=== PATIENT | female | born 1975 | race Caucasian/White ===

== ENCOUNTER 2017-12-27 19:25 | Emergency (ER) | payer SELFPAY ==
[2017-12-27] MEDS: fentaNYL PF VIAL 100 MCG/2 ML VIAL IV (20:27)
[2017-12-27] MEDS: IV NORMAL SALINE 1000ML BAG 1,000 ML IV (20:28)
[2017-12-27] MEDS: ETOMIDATE 20 MG/10 ML VIAL. IV (20:28)
[2017-12-27] MEDS: ONDANSETRON PF 4 MG/2 ML VIAL. IV (20:47)
[2017-12-27] MEDS: KETAMINE HCL 500 MG/10 ML VIAL. IV (21:28)
== END 2017-12-27 22:10 | disposition home or self-care (01) ==
LOC: ER 19:25
DX: S43.005A Unspecified dislocation of left shoulder joint, initial encounter (principal); J44.9 Chronic obstructive pulmonary disease, unspecified; Z88.6 Allergy status to analgesic agent; X50.9XXA Other and unspecified overexertion or strenuous movements or postures, initial encounter; Y93.89 Activity, other specified; Y99.8 Other external cause status; Y92.89 Other specified places as the place of occurrence of the external cause
CPT/HCPCS: 23650; 73030; 96374; 99285-25; J2405; J3010; J3490; J7030

== ENCOUNTER 2018-03-30 13:22 | Emergency (ER) | payer SELFPAY ==
[~2018-03-30] VITALS: Ht 160 cm; Wt 74.8 kg
[~2018-03-30 13:22] MED LIST: ORPH100T PO
[2018-03-30] MEDS ORDERED: IV NORMAL SALINE 1000ML BAG 1,000 ML IV ONE (13:45)
[2018-03-30] MEDS ORDERED: AMPICILLIN/SULBACTAM 3 GM in IV NORMAL SALINE 100ML 100 ML IV ONE (14:00)
[2018-03-30] MEDS ORDERED: fentaNYL PF VIAL 100 MCG/2 ML VIAL IV ONE ×2 (14:00→16:15)
[2018-03-30] MEDS ORDERED: ONDANSETRON PF 4 MG/2 ML VIAL. IV ONE (14:00)
--- NOTE | 2018-03-30 14:21 | RAD ---
Examination: 2 views of the left shoulder HISTORY: History of left shoulder injury COMPARISON: None available FINDINGS: The humerus head is subluxed or dislocated anteriorly and inferior to the glenoid. Mild degenerative changes AC joint. IMPRESSION: Anterior-inferior subluxation or dislocation of the humerus with relation to glenoid. Electronically signed by: Cristian Maldonado MD (03/30/2018 2:18 PM) [facility]
--- NOTE | 2018-03-30 14:25 | RAD ---
Examination: 3 views of the left knee HISTORY: History of dog bite to the left knee, laceration COMPARISON: None available FINDINGS: The alignment of the knee joint grossly appears unremarkable. No acute fracture identified. No significant knee joint effusion. Mild soft tissue swelling identified lateral to the distal femur likely secondary to injury. IMPRESSION: No acute osseous findings Electronically signed by: Cristian Maldonado MD (03/30/2018 2:22 PM) [facility]
--- NOTE | 2018-03-30 14:29 | PHYS DOC ---
Past Medical History Past Medical History: Asthma, Bipolar, Bronchitis, COPD Past Surgical History: Appendectomy, Cholecystectomy, Tonsillectomy, Tubal ligation Additional Past Surgical Histo: LT SHOULDER, LT WRIST, Alcohol Use: None Drug Use: None Adult General Chief Complaint Chief Complaint: UPPER EXTREMITY INJURY [facility] HPI Patient is a 42 year old was brought here by EMS for evaluation of left shoulder injury, left knee injury. Patient was trying to separate her dogs from fighting, the dog turned around bit her on the left knee area. Patient said the dog pulled on her, injuring her left shoulder. She has history of recurrent left shoulder dislocation. She is up-to-date on vaccination. Patient said her dogs are up to date on the vaccination as well. She denies any weakness or numbness in her left upper extremity. Review of Systems Review of Systems Constitutional: Denies fever or chills [] Eyes: Denies change in visual acuity, redness, or eye pain [] HENT: Denies nasal congestion or sore throat [] Respiratory: Denies cough or shortness of breath [] Cardiovascular: No additional information not addressed in HPI [] GI: Denies abdominal pain, nausea, vomiting, bloody stools or diarrhea [] : Denies dysuria or hematuria [] Musculoskeletal: Positive for left shoulder pain, left knee pain Integument: Positive for left lateral knee laceration Neurologic: Denies headache, focal weakness or sensory changes [] Endocrine: Denies polyuria or polydipsia [] All other systems were reviewed and found to be within normal limits, except as documented in this note. Current Medications Current Medications Current Medications Medications (Trade) Dose Ordered Sig/Evans Start Time Stop Time Status Last Admin Dose Admin Ampicillin Sodium/ Sulbactam Sodium 3 gm/Sodium Chloride 100 ml @ 200 mls/hr 1X ONCE 03/30/18 14:00 03/30/18 14:29 DC 03/30/18 14:18 200 MLS/HR Fentanyl Citrate (Fentanyl 2ml Vial) 75 mcg 1X ONCE 03/30/18 16:15 03/30/18 16:16 DC 03/30/18 15:50 75 MCG Lidocaine HCl (Lidocaine 1% 20ml Vial) 20 ml STK-MED ONCE 03/30/18 14:41 03/30/18 14:42 Cancel Midazolam HCl (Versed) 5 mg 1X ONCE 03/30/18 16:15 03/30/18 16:16 DC 03/30/18 15:50 5 MG Ondansetron HCl (Zofran) 4 mg 1X ONCE 03/30/18 14:00 03/30/18 14:01 DC 03/30/18 14:18 4 MG Propofol (Diprivan) 50 mg 1X ONCE 03/30/18 14:45 03/30/18 14:46 DC 03/30/18 14:46 50 MG Sodium Chloride 1,000 ml @ 1,000 mls/hr 1X ONCE 03/30/18 13:45 03/30/18 14:44 DC 03/30/18 14:15 1,000 MLS/HR Allergies Allergies Allergies Coded Allergies Type Severity Reaction Last Updated Verified NSAIDS (Non-Steroidal Anti-Inflamma Allergy Intermediate 12/27/17 Yes Physical Exam Physical Exam Constitutional: Well developed, well nourished, no acute distress, non-toxic appearance. [] HENT: Normocephalic, atraumatic, bilateral external ears normal, oropharynx moist, no oral exudates, nose normal. [] Eyes: PERRLA, EOMI, conjunctiva normal, no discharge. [] Neck: Normal range of motion, no tenderness, supple, no stridor. [] Cardiovascular:Heart rate regular rhythm, no murmur [] Lungs & Thorax: Bilateral breath sounds clear to auscultation [] Abdomen: Bowel sounds normal, soft, no tenderness, no masses, no pulsatile masses. [] Skin: Warm, dry, no erythema, 2 CM LACERATION ON THE LATERAL PART OF LEFT KNEE , NO TENDON INVOLVED. Back: No tenderness, no CVA tenderness. [] Extremities: Left shoulder appeared to be subluxed, tender to palpation. Neurologic: Alert and oriented X 3, normal motor function, normal sensory function, no focal deficits noted. [] Psychologic: Affect normal, judgement normal, mood normal. [] Current Patient Data Vital Signs Vital Signs Date Time Temp Pulse Resp B/P (MAP) Pulse Ox O2 Delivery O2 Flow Rate FiO2 03/30/18 16:07 94/54 (67) 97 Room Air 03/30/18 15:57 4.0 03/30/18 15:03 78 03/30/18 14:47 20 16 03/30/18 13:42 98.1 98.1 EKG EKG [] Radiology/Procedures Radiology/Procedures [][id number] [place] [address] IMAGING REPORT Signed PATIENT: TORREY BRYANT ACCOUNT: [id number] : 1975 LOCATION: ER AGE: 42 SEX: F EXAM STATUS: REG ER ORD. PHYSICIAN: MARA ZENG DO REASON: LEFT SHOULDER INJURY PROCEDURE: SHOULDER 2+V LEFT Examination: 2 views of the left shoulder HISTORY: History of left shoulder injury COMPARISON: None available FINDINGS: The humerus head is subluxed or dislocated anteriorly and inferior to the glenoid. Mild degenerative changes AC joint. IMPRESSION: Anterior-inferior subluxation or dislocation of the humerus with relation to glenoid. Electronically signed by: Cristian Maldonado MD (03/30/2018 2:18 PM) [facility] DICTATED and SIGNED BY: CRISTIAN MALDONADO MD DATE: 03/30/18 [id number] [place] [address] IMAGING REPORT Signed PATIENT: TORREY BRYANT ACCOUNT: [id number] : 1975 LOCATION: ER AGE: 42 SEX: F EXAM STATUS: REG ER ORD. PHYSICIAN: MARA ZENG DO REASON: post reduction PROCEDURE: SHOULDER 2+V LEFT Two-view left shoulder dated 03/30/2018. Comparison made to study dated same day. CLINICAL INDICATION: Post reduction of shoulder dislocation. FINDINGS: 2 views left shoulder show normal glenohumeral alignment. No displaced fracture. Mild hypertrophic change of the AC joint. No acute osseous or articular abnormality. IMPRESSION: Reduction of anterior dislocation. Electronically signed by: Dixon Sutherland MD (03/30/2018 4:18 PM) [facility] [place] DICTATED and SIGNED BY: DIXON SUTHERLAND MD DATE: 03/30/18 6627 Course & Med Decision Making Course & Med Decision Making Pertinent Labs and Imaging studies reviewed. (See chart for details) Left shoulder was reduced initially by traction and counter traction by this provider. It was reduced successfully. It was placed in shoulder immobilizer. However, patient started sneezing nonstopped due to oxygen in her nose. The shoulder popped out again. Patient was then sedated and left shoulder was reduced successfully. Repeated xray shoulder left shoulder reduced. However, Patient said she felt like her left shoulder was out against when she tried to move around in her bed. Exam again was consistent with left shoulder dislocation. Patient was then sedated with versed and fentanyl. It was reduced as ease. Left shoulder was placed in shoulder immobilizer, reduction was confirmed on xray. Patient will be discharged home, she will need to follow up with her orthopedic surgeon about the recurrent left shoulder dislocation. This provider did the reduction and sedation. The wound on left lateral knee was cleaned with betadine and normal saline. It was anesthesized with 15 ml of 1% Lidocaine. The wound was then explored, no foreign body found. No tendon injury, no active bleeding. The wound was measured as 2 cm. It was closed approximately with 2 sutures, 3-0-NYLON simple interrupt method. Patient tolerated procedure well. Dragon Disclaimer Dragon Disclaimer This electronic medical record was generated, in whole or in part, using a voice recognition dictation system. RISKS/ALTERNATIVES Risks/Alternatives Risks and alternatives of this type of sedation and procedure discussed with: RISK/ALTERNATIVES: Patient H & P ON CHART H & P H & P on chart and reviewed for co-morbid conditions and appropriate labs. H&P ON CHART: Yes STATUS PREG STATUS ASSESSED: Yes MEDS/ALLERGIES REVIEWED Meds/Allergies Reviewed Medications and Allergies including time and route of recently administered narcotics and sedatives. MEDS/ALLERGIES REVIEWED: Yes ASA RATING ASA RATING: I AIRWAY ASSESSMENT Airway Assessment Airway patency, oral function limitations, presence of caps, crowns, dentures, partials, and ability to extend neck assessed. AIRWAY ASSESSMENT: Yes MALLAMPATI SCORE MALLAMPATI SCORE: I PRE-SEDATION ASSESSMENT PRE-SEDATION ASSESSMENT: Yes Procedural Sedation Proc Sed Indication: Left shoulder dislocation Consent: I have discussed with the patient and/or the patient accounts receivable representative the indication, alternatives, and the possible risks and /or complications of the planned procedure and the anesthesia methods. The patient and/or patient accounts receivable representative appear to understand and agree to proceed. Pre-Sedation Documentation and Exam: AWAKE, ALERT, IN NO ACUTE DISTRESS Airway Assessment: normal. Prior History of Anesthesia Complications: none. ASA Classification: 1 Sedation/ Anesthesia Plan: PROPOFOL Medications Used: see nursing notes. Monitoring and Safety: The patient was placed on a screen vent binder and vital signs, pulse oximetry and level of consciousness were continuously evaluated throughout the procedure. The patient was closely monitored until recovery from the medications was complete and the patient had returned to baseline status. Respiratory therapy was on standby at all times during the procedure. (The following sections must be completed) Post-Sedation Vital Signs: VITAL SIGN STABLE. Post-Sedation Exam: Patient was awake, alert, oriented, back to baseline. Complications: none. Departure Departure Impression: Primary Impression: Recurrent dislocation, left shoulder Additional Impression: Dog bite of extremity Disposition: HOME, SELF-CARE Condition: STABLE Referrals: GUSTAVO CASTILLO II, MD Patient Instructions: Animal Bite, Shoulder Dislocation Scripts Amoxicillin/Potassium Clav (AUGMENTIN 875-125 TABLET) 1 Each Tablet 1 TAB PO BID for 10 Days, #20 TAB Prov: MARA ZENG DO 03/30/18 Problem Qualifiers MARA ZENG DO Mar 30, 2018 14:29
[2018-03-30] MEDS ORDERED: LIDOCAINE 1% Multi-Dose 20 ML VIAL. ONE (14:41)
[2018-03-30] MEDS ORDERED: PROPOFOL 10 MG/ML (20ML) VIAL. IV ONE (14:45)
[2018-03-30] MEDS ORDERED: LIDOCAINE 1% Multi-Dose 20 ML VIAL. INJ ONE (14:45)
[2018-03-30 14:47] VITALS: BP 113/60
--- NOTE | 2018-03-30 15:37 | RAD ---
2 views left shoulder dated 03/30/2018. Comparison made to study dated same day. CLINICAL INDICATION: Post reduction of shoulder dislocation. FINDINGS: 2 views of left shoulder show interval reduction of anterior dislocation. Alignment anatomic. No displaced fracture. Mild hypertrophic change of the AC joint. IMPRESSION: Interval reduction of anterior dislocation. Electronically signed by: Dixon Sutherland MD (03/30/2018 3:34 PM) [facility] [place]
[2018-03-30] MEDS ORDERED: MIDAZOLAM HCL/PF 5 MG/5 ML VIAL. NS ONE (16:00)
[2018-03-30] MEDS ORDERED: MIDAZOLAM HCL/PF 5 MG/5 ML VIAL. IV ONE (16:15)
--- NOTE | 2018-03-30 16:21 | RAD ---
Two-view left shoulder dated 03/30/2018. Comparison made to study dated same day. CLINICAL INDICATION: Post reduction of shoulder dislocation. FINDINGS: 2 views left shoulder show normal glenohumeral alignment. No displaced fracture. Mild hypertrophic change of the AC joint. No acute osseous or articular abnormality. IMPRESSION: Reduction of anterior dislocation. Electronically signed by: Dixon Sutherland MD (03/30/2018 4:18 PM) [facility] [place]
[2018-03-30] MEDS ORDERED: AMOX1TAB61 PO (16:35)
[2018-03-30 17:07] VITALS: BP 102/60
== END 2018-03-30 17:42 | disposition home or self-care (01) ==
LOC: ER 13:22
DX: M24.412 Recurrent dislocation, left shoulder (principal); S81.012A Laceration without foreign body, left knee, initial encounter; J44.9 Chronic obstructive pulmonary disease, unspecified; F31.9 Bipolar disorder, unspecified; Z90.89 Acquired absence of other organs; Z90.710 Acquired absence of both cervix and uterus; Z98.51 Tubal ligation status; Z88.8 Allergy status to other drugs, medicaments and biological substances; W54.0XXA Bitten by dog, initial encounter; Y93.89 Activity, other specified; Y92.89 Other specified places as the place of occurrence of the external cause; Y99.8 Other external cause status
CPT/HCPCS: 12001; 23650; 73030; 73562; 96365; 96375; 99285; J0295; J2250; J2405; J2704; J3010; J7030; 99152